=== PATIENT | female | born 1950 | race Caucasian/White ===

== ENCOUNTER 2017-01-03 09:02 | Emergency (ER) | payer MEDICARE, OTHER ==
[2017-01-03] VITALS (8 sets, daily range): BP systolic 116–159; BP diastolic 52–86; PULSE 80–98; RESP 17–24; O2SAT 91–96
[~2017-01-03] VITALS: Ht 167.6 cm; Wt 125.0 kg
[2017-01-03 09:11] LABS: BASOPHILS % (AUTO) 0.5 % (0-3); EOSINOPHILS % (AUTO) 0.7 % (0-5); MONOCYTES % (AUTO) 8.1 % (4-12); Mean Corpuscular Hemoglobin 23.8 pg (27.0-35.0); Mean Corpuscular Volume 78.2 fL (81-100); NEUTROPHILS % (AUTO) 82.1 % (40-74); Platelet Count 106 bil/L (150-400)
--- NOTE | 2017-01-03 09:17 | ED.REPORT ---
HPI-Chest Pain 40 and Over Date of Service January 03, 2017 ED Provider: Mumtaz Hopper DO 66 year old female with a history of chronic atrial fibrillation on anticoagulation therapy with warfarin, HTN, and diabetes presents to the ER via EMS accompanied by her complaining of chest pain onset at 03:30 this morning. Associated symptoms include mild headache, chills, nasal drainage, sore throat, and pain with swallowing and moving her torso. Patient denies cough. Symptoms were treated with Tylenol which relieved symptoms enough to allow her to sleep, though symptoms worsened in severity upon awakening again later in the morning. Nursing Notes Stated Complaint: CHEST PAIN Chief Complaint: Chest Pain Nursing Notes Reviewed: Yes Allergies: Coded Allergies: lisinopril (Verified Allergy, Intermediate, COUGH, INCREASE MUCOUS PRODUCTION, 08/16/15) phenobarbital (Verified Adverse Reaction, Intermediate, AGITATION, ) methocarbamol (Verified Adverse Reaction, Unknown, 08/16/15) General Time Seen by MD: 09:16 Chief Complaint Chest pain Hx Obtained From: Patient Arrived By: Ambulance Sudden in Onset?: No Onset Occurred: 5 - 8 hours ago Symptom Duration: Since onset Location: : Substernal Quality: Painful Severity: Current: Moderate Severity: Maximum: Moderate Associated with: Reports: Diaphoresis, Fever, Denies: Cough, productive Recent Healthcare: Recent doctor visit Similar Sx Previous: No Past Medical History Past Medical History Reports: Asthma, Diabetes mellitus, Hypertension Reports: Atrial fibrillation Past Surgical History Reports: Hysterectomy, Tonsillectomy Reports: Knee replacement, Tubal ligation Smoking History Never Smoker Social History Alcohol Use: "Social" Drug Use: Denies drug use Other Social History: Occupation no work or school Review of Systems Review of Systems Note: +Nasal Drainage Constitutional: Reports: Chills, Fever Respiratory: Denies: Non-productive cough Cardiovascular: Reports: Chest pain GI: Reports: Nausea, Denies: Diarrhea, Vomiting Musculoskeletal: Reports: Myalgia, Neck pain Skin: Reports Diaphoresis Neurologic: Reports: Headache Complete sys rev & neg: except as marked. Ears / Nose / Throat: Reports: Earache bilateral, Nasal congestion, Sore throat Physical Exam Initial Vital Signs Vital Signs (First) Date Time Temp Pulse Resp B/P Pulse Ox O2 Delivery O2 Flow Rate FiO2 01/03/17 09:05 37.2 80 17 116/52 96 Room Air Initial VS: Reviewed Head / Eyes: Atraumatic, Normocephalic Extremities: Vascular intact, Neuro intact, No swelling, No tenderness Skin: Warm, Dry, No cyanosis Neurologic: Alert, Oriented, Nonfocal General/Constitutional: Awake, Alert, Well developed, Well nourished Respiratory / Chest: Breath sounds NL, Breath sounds = bilat, No respiratory distress, No rales, No rhonchi, No wheezing Tender chest wall. Cardiovascular: Heart rate NL, Heart sounds NL, No murmurs, Peripheral circulation NL, Pulses = bilaterally, No gross BP differential Heart Rate / Rhythm: Positive: Irreg irregular rhythm Abdomen: Soft, Non-tender, McBurney's non-tender, No guarding, No rebound, BS normoactive, No distention, No hernia, No palpable mass Neck: Supple, Full range of motion, Non-tender, No midline vertebral tend No jaw claudication. ENT: Mucous membranes moist, Pharynx NL, Tympanic membs NL, Ext aud canal NL Interpretation & Diagnostics X-RAY NECK SOFT TISSUE ([id number]) IMPRESSION: 1. Patent airway demonstrated without prevertebral soft tissue thickening. Dictated by: Kota Sánchez M.D. on 01/03/2017 at 10:35 Approved by: Kota Sánchez M.D. on 01/03/2017 at 10:40 Lab Results Interpretation Result Diagram: 01/03/17 0908 01/03/17 0908 Test 01/03/17 09:08 White Blood Count 4.2th/mm3 (3.8-10.1) Red Blood Count 3.95mil/mm3 (3.90-5.20) Hemoglobin 9.4g/dL (12.0-15.6) Hematocrit 30.9% (35.0-46.0) Mean Corpuscular Volume 78.2fL (81-100) Mean Corpuscular Hemoglobin 23.8pg (27.0-35.0) Mean Corpuscular Hemoglobin Concent 30.4% (32.0-37.0) Red Cell Distribution Width 17.5% (12.3-15.4) Platelet Count 106bil/L (150-400) Neutrophils (%) (Auto) 82.1% (40-74) Lymphocytes (%) (Auto) 8.4% (14-46) Monocytes (%) (Auto) 8.1% (4-12) Eosinophils (%) (Auto) 0.7% (0-5) Basophils (%) (Auto) 0.5% (0-3) Erythrocyte Sedimentation Rate 30mm/hr (0-40) Prothrombin Time 20.1sec (8.1-12.5) Prothromb Time International Ratio 1.85ratio Sodium Level 139mEq/L (134-144) Potassium Level 4.2mEq/L (3.5-5.2) Chloride Level 101mEq/L (97-108) Carbon Dioxide Level 22mmol/L (18-29) Blood Urea Nitrogen 18mg/dL (8-27) Creatinine 1.18mg/dL (0.57-1.00) Estimat Glomerular Filtration Rate 66mL/min (>59) Glucose Level 240mg/dL (60-99) Calcium Level 8.7mg/dL (8.5-10.1) Magnesium Level 1.6mg/dL (1.6-2.6) Total Bilirubin 0.8mg/dL (0.0-1.2) Aspartate Amino Transf (AST/SGOT) 17U/L (0-50) Alanine Aminotransferase (ALT/SGPT) 8U/L (0-32) Alkaline Phosphatase 69U/L (25-165) Troponin T 0.010ug/L (0.0-0.011) Total Protein 6.9g/dL (6.4-8.4) Albumin 3.9g/dL (3.4-5.0) ECG Interpretation ECG Interpretation: Atrial fibrillation, rate 92 Time: 09:18 Interpreted by: ED physician Normal ECG Interpretation: No acute ischemic changes X-Ray Chest Interpretation Chest Xray Interpretation: IMPRESSION: Cardiomegaly without overt heart failure. Dictated by: Benito Pressley M.D. on 01/03/2017 at 8:28 Approved by: Benito Pressley M.D. on 01/03/2017 at 8:29 View: Portable, 1 view Interpretation / Wet Read by: Interpret - Radiologist CT Head Interpretation IMPRESSION: Negative head CT. No acute intracranial hemorrhage. Dictated by: Benito Pressley M.D. on 01/03/2017 at 12:11 Approved by: Benito Pressley M.D. on 01/03/2017 at 12:12 Re-Eval/Medical Decision Med Decision/Clinical Course Patient reports had neck and chest pain that is reproducible and sounds more like either of viral upper respiratory infection or allergies, headache is not severe, given her multiple comorbidities and rather concerning presentation more resource intensive workup was performed, head CT is unremarkable for any obvious intracranial hemorrhage, lateral neck x-rays are performed to rule out deep space neck infection. Her clinical exam is not consistent with strep throat. The chest is focally tender and reproducible with movement of the arms and torso, EKG shows chronic A. fib, troponin negative other labs are unremarkable. Sedimentation rate was performed to look for other autoimmune inflammatory processes and was also unremarkable. Patient has had moderate relief with the medications given in the ER and will be discharged. Return and follow-up precautions are given. Source of Hx: Old records Time of Eval: 10:10 Re-Evaluation/Progress Note: Patient reports that symptoms have improved, still having sore throat. Time of Eval: 10:39 Re-Evaluation/Progress Note: Patient reports that the medications are working and she is feeling better. She denies jaw claudication. Time of Eval: 13:21 Re-Evaluation/Progress Note: Discussed lab and radiology results and plan to discharge. Patient is amenable to the plan. Return precautions given. All other questions addressed. Counseled Regarding: Diagnosis, Lab results, Need for follow-up, When/why to return to ED Discharge & Departure Primary Impression: Non-cardiac chest pain Additional Impressions: Neck pain Mild headache Disposition: Home Discharge Condition All VS Reviewed: Yes Condition: Stable Additional Instructions: Your workup today is reassuring. Your labs, X-rays, and CT results do not indicate that there is any dangerous cause for your symptoms today. Take Tylenol and Tramadol as directed for pain. Start with 1/2 a Tramadol pill and progress to full dose if needed. Follow-up with your primary care doctor later this week. Return to the ER if you develop any new or concerning symptoms. Referrals: China Liu (PCP) (Family) Scribe Attestation Portions of this note were transcribed by Kaela Tran. I, Dr. Hopper, personally performed the history, physical exam and medical decision-making; I reviewed and confirmed the accuracy of the information in the transcribed note. Signed by: Brandy Warren, 01/03/2017 at 13:24 copies to: China Liu Timothy S DO January 03, 2017 09:17 KAELA TRAN January 03, 2017 09:22
--- NOTE | 2017-01-03 09:31 | DRSVH ---
PROCEDURE: X-RAY CHEST ONE VIEW, PORTABLE ([id number]) INDICATIONS: cp TECHNIQUE: One view of the chest was acquired. COMPARISON: None. FINDINGS: Surgical changes and devices: Clips within the right upper quadrant are suggestive of a prior cholecy stectomy. Lungs and pleura: There are low lung volumes. No lobar consolidation, large effusion, or pneumothora x is evident. Mediastinum: Mediastinal contours appear normal. Heart size is enlarged. Bones and chest wall: No suspicious bony lesions. The bone mineralization appears decreased. Degen erative changes of the spine are present. Overlying soft tissues appear unremarkable. IMPRESSION: Cardiomegaly without overt heart failure. Dictated by: Benito Pressley M.D. on 01/03/2017 at 8:28 Approved by: Benito Pressley M.D. on 01/03/2017 at 8:29
[2017-01-03 09:34] LABS: TROPONIN T 0.01 ug/L (0.0-0.011)
[2017-01-03] MEDS ORDERED: ProchlorPERazine 5 mg/mL 2 mL Inj IVPUSH ONE (09:40)
[2017-01-03 09:45] LABS: Magnesium 1.6 mg/dL (1.6-2.6)
[2017-01-03] MEDS ORDERED: Ketorolac 15 mg/mL Inj IVPUSH ONE (10:35)
--- NOTE | 2017-01-03 10:41 | DRSVH ---
PROCEDURE: X-RAY NECK SOFT TISSUE ([id number]) INDICATIONS: sore throat, neck feels swollen TECHNIQUE: 2 views of the neck were acquired. COMPARISON: None. FINDINGS: Airway: The airway appears patent. Soft tissues: Prevertebral soft tissues are normal in thickness. The epiglottis and aryepiglottic f olds appear normal. No soft tissue gas. Bones: No suspicious bony lesions. Visualized cervical spine is normally aligned. IMPRESSION: 1. Patent airway demonstrated without prevertebral soft tissue thickening. Dictated by: Kota Sánchez M.D. on 01/03/2017 at 10:35 Approved by: Kota Sánchez M.D. on 01/03/2017 at 10:40
[2017-01-03 10:49] LABS: INR 1.85 ratio
--- NOTE | 2017-01-03 13:14 | DRSVH ---
PROCEDURE: CT BRAIN WITHOUT CONTRAST ([id number]) INDICATIONS: headache, on coumadin TECHNIQUE: Noncontrast 4.5 mm thick angled axial sections acquired from the foramen magnum to the vertex, with c oronal reformats. COMPARISON: None. FINDINGS: Image quality: Diagnostic. CSF spaces: Basal cisterns are patent. No extra-axial fluid collections. Ventricles are normal in size and shape. Brain: No midline shift. No intracranial masses or hemorrhage. Pereyra-white matter interface is norm al. Skull and face: Calvarium and visualized facial bones are intact, without suspicious lesions. Sinuses: Visualized sinuses and mastoids are clear. IMPRESSION: Negative head CT. No acute intracranial hemorrhage. Dictated by: Benito Pressley M.D. on 01/03/2017 at 12:11 Approved by: Benito Pressley M.D. on 01/03/2017 at 12:12
[2017-01-03] MEDS ORDERED: TRAM50TA2 PO (13:29)
== END 2017-01-03 13:47 | disposition home or self-care (01) ==
LOC: SED 09:02
DX: R07.89 Other chest pain (principal); M54.2 Cervicalgia; R51 Headache; R68.83 Chills (without fever); J34.89 Other specified disorders of nose and nasal sinuses; J02.9 Acute pharyngitis, unspecified; I48.2 Chronic atrial fibrillation; I10 Essential (primary) hypertension; E11.9 Type 2 diabetes mellitus without complications; J45.909 Unspecified asthma, uncomplicated; Z79.01 Long term (current) use of anticoagulants; Z88.8 Allergy status to other drugs, medicaments and biological substances
CPT/HCPCS: 36415; 70360; 70450; 71010; 80053; 83735; 84484; 85025; 85610; 85651; 93005; 96374; 96375; 99285; J0780; J1200

== ENCOUNTER 2017-01-18 10:41 | Emergency (ER) | payer MEDICARE, OTHER ==
[~2017-01-18] VITALS: Ht 170.2 cm; Wt 125.0 kg
[~2017-01-18 10:41] MED LIST: TRAM50TA2 PO
[2017-01-18 10:44] VITALS: BP 143/81; PULSE 84; RESP 24; O2SAT 96
--- NOTE | 2017-01-18 10:51 | ED.REPORT ---
HPI-General Illness Date of Service January 18, 2017 ED Provider: Skyler Fregoso MD Patient is a 66 year old female with history if atrial fibrillation on anticoagulation therapy with warfarin, 2.5 mg daily, last INR 2.4 today, hypertension and diabetes presents to [facility] Emergency Department accompanied by her complaining of worsening shortness of breath and decreased urination for two weeks. She states she has been in ED about two weeks ago for acute chest pain work up which was negative. Since then she noticed shortness of breath on exertion that was getting worse. She used to be active in her garden and around the house, but now she is spending most of her time at home resting as any activity leads to shortness of breath. She is using Proair every 6 hours for the last 2 weeks as it seems to help. She also states she noticed that she is urinating less even though she seems to drink the same amount of fluids daily. She denies hematuria, dyuria. She denies chest pain, nausea, vomiting, diarrhea. She does state she has epigastric tenderness and fulness lately. Nursing Notes Stated Complaint: CANT BREATH/NOT URINATING Chief Complaint: Respiratory Complaints Nursing Notes Reviewed: Yes Allergies: Coded Allergies: lisinopril (Verified Allergy, Intermediate, COUGH, INCREASE MUCOUS PRODUCTION, 08/16/15) phenobarbital (Verified Adverse Reaction, Intermediate, AGITATION, ) methocarbamol (Verified Adverse Reaction, Unknown, 08/16/15) Scheduled Atenolol (Atenolol) 50 Mg Tablet 25 MG PO DAILY Duloxetine (Duloxetine) 30 Mg Capsule.dr 30 MG PO DAILY Furosemide (Lasix) 20 Mg Tablet 20 MG PO DAILY Glipizide (Glipizide) 10 Mg Tablet 10 MG PO DAILY Insulin Glargine (Lantus U100 Insulin Vial) 100 Unit/Ml Vial 43 UNITS [id number] HS Losartan Potassium (Losartan Potassium) 50 Mg Tablet 50 MG PO DAILY Warfarin Sodium (Warfarin Sodium) 2.5 Mg Tablet 2.5 MG PO DAILY Scheduled PRN Tramadol (Tramadol) 50 Mg Tablet 25-50 MG PO Q4H PRN PRN For Pain General Time Seen by MD: 10:49 Chief Complaint Breathing problem Hx Obtained From: Patient, Spouse Onset Occurred: More than a week ago... (2 weeks) Symptom Duration: Since onset Severity: Current: No pain currently Severity: Maximum: No pain Past Medical History Past Medical History Notes: Past Medical History Reports: Asthma, Congestive heart failure, Diabetes mellitus, Hypertension Reports: Atrial fibrillation Past Surgical History Reports: Cholecystectomy, Hysterectomy, Tonsillectomy Reports: Knee replacement, Tubal ligation Smoking History Never Smoker Social History Alcohol Use: "Social" Drug Use: Denies drug use Other Social History: , Local resident Occupation no work or school Ambulatory Status Independent Review of Systems Full Review of Systems Constitutional: Reports: Fatigue, Denies: Chills, Fever, Lethargy, Malaise, Recent wt loss, Weakness - generalized Respiratory: Denies: Hemoptysis, Pleuritic pain Cardiovascular: Reports: Dyspnea on exertion, Edema, Denies: Chest pain GI: Reports: Abdominal pain Female: Denies: Dysuria, Hematuria, Incontinence, Nocturia Skin: Denies Bruising, Denies Diaphoresis Allergy / Immune: Denies: Itching Neurologic: Denies: Bowel dysfunction, Dizziness, Focal weakness Psychiatric: Denies: Change mental status Physical Exam Vital Signs Vital Signs Date Time Temp Pulse Resp B/P Pulse Ox O2 Delivery O2 Flow Rate FiO2 01/18/17 14:47 36.8 76 16 116/66 94 Room Air 01/18/17 14:17 99 18 120/63 95 Room Air 01/18/17 10:44 37.4 84 24 143/81 96 Room Air Initial VS: Reviewed (RR 24) General/Constitutional: Well-developed, Well-nourished Head / Eyes: Atraumatic, Normocephalic, PERRL ENT: Mucous membranes moist, Conjunctiva normal, No scleral icterus Neck: Supple, Non-tender, Full range of motion Skin: Warm, Dry, No cyanosis Neurologic: Alert, Oriented, Nonfocal Psychiatric: Mood/affect normal, Behavior normal, Normal thought content General/Constitutional: Awake, Alert, No acute distress Head / Eyes: Atraumatic, Normocephalic, PERRL Neck: Atraumatic, Supple, Full range of motion, Non-tender, No JVD Diminished Breath Sounds: Positive: Decreased bilateral Rales / Rhonchi: Positive: Rales bilateral bases Cardiovascular: Heart rate NL Heart Rate / Rhythm: Positive: Irreg irregular rhythm Lower Ext Edema: Positive: Bilateral 1+ Abdomen: Atraumatic, Soft, No guarding, No rebound, BS normoactive Tenderness/Guarding/Rebound: Positive: Tender epigastric Upper Extremities Upper Extremity / MS: Inspection NL, No swelling, Vascular intact Skin: No rash, Warm, Dry, Intact Interpretation & Diagnostics Lab Results Interpretation Result Diagram: 01/18/17 1200 01/18/17 1200 Test 01/18/17 12:00 01/18/17 12:30 01/18/17 13:30 White Blood Count 3.5th/mm3 (3.8-10.1) Red Blood Count 3.64mil/mm3 (3.90-5.20) Hemoglobin 8.4g/dL (12.0-15.6) Hematocrit 28.0% (35.0-46.0) Mean Corpuscular Volume 76.9fL (81-100) Mean Corpuscular Hemoglobin 23.1pg (27.0-35.0) Mean Corpuscular Hemoglobin Concent 30.0% (32.0-37.0) Red Cell Distribution Width 17.2% (12.3-15.4) Platelet Count 136bil/L (150-400) Neutrophils (%) (Auto) 81.8% (40-74) Lymphocytes (%) (Auto) 8.8% (14-46) Monocytes (%) (Auto) 7.4% (4-12) Eosinophils (%) (Auto) 1.1% (0-5) Basophils (%) (Auto) 0.6% (0-3) Sodium Level 138mEq/L (134-144) Potassium Level 4.1mEq/L (3.5-5.2) Chloride Level 101mEq/L (97-108) Carbon Dioxide Level 24mmol/L (18-29) Blood Urea Nitrogen 17mg/dL (8-27) Creatinine 1.35mg/dL (0.57-1.00) Estimat Glomerular Filtration Rate 56mL/min (>59) Glucose Level 204mg/dL (60-99) Calcium Level 8.6mg/dL (8.5-10.1) Magnesium Level 1.9mg/dL (1.6-2.6) Total Bilirubin 0.9mg/dL (0.0-1.2) Aspartate Amino Transf (AST/SGOT) 12U/L (0-50) Alanine Aminotransferase (ALT/SGPT) 6U/L (0-32) Alkaline Phosphatase 73U/L (25-165) Troponin T 0.010ug/L (0.0-0.011) Pro-B-Type Natriuretic Peptide 2038pg/mL (0-301) Total Protein 6.0g/dL (6.4-8.4) Albumin 3.4g/dL (3.4-5.0) Hold Urine Received (Received) Hold Haney Top Tube Received (Received) ECG Interpretation ECG Interpretation: Atrial fibrillation, rate 79 Time: 12:15 Interpreted by: ED physician CBC Interpretation WBC low (3.5), Hgb low (8.4), Platelets low BMP / CMP Interpretation Creatinine elevated (1.35 (1.18 two days ago)) X-Ray Chest Interpretation Chest Xray Interpretation: Left lower and mid lobe opacity. Could be sales representative publications of fluid. Underlying consolidative air space opacity, could be sales representative publications of pneumonia. Interpretation / Wet Read by: Interpret - Radiologist Re-Eval/Medical Decision Med Decision/Clinical Course 66 year old female with A-fib, on warfarin, presents with shortness of breath x 2 weeks. Laboratory work up significant for BNP of 2038 and creatinine of 1.35. Chest x-ray reveals cardiomegaly with left lower lobe pleural effusion and opacity. UA with trace blood otherwise unremarkable. Most likely in CHF. Will give IV Lasix, 40 mg. She will be discharged home with Rx for Lasix, 20 mg PO daily and close follow up with her PCP within 5-7 days. 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 You have congestive heart failure. Please take Lasix, 20 mg by mouth daily to help your body to get rid of extra fluid in your body. Make sure you call your PCP tomorrow and make a follow up appointment within 5-7 days, as you need to be reevaluated again and have repeat blood work done. Please come back to Emergency Department if you develop sudden onset of chest pain, shortness of breath, nausea, vomiting, weakness. Thank you for letting us partake in your care today. Referrals: China Liu (PCP) (Family) EDSupervising Provider for APC: Skyler Fregoso MD Attending Statement Attending attestation: I saw this patient in conjunction with the above named resident. I was present for all chen portions of the history taking and physical examination. I agree with the workup, evaluation, treatment and disposition. Skyler Edmonds MD, MD January 18, 2017 10:51 Ngozi Nieves DO January 18, 2017 12:50
[2017-01-18] MEDS ORDERED: LOSA50TA37 PO (11:23)
[2017-01-18] MEDS ORDERED: DULO30CA50 PO (11:23)
[2017-01-18] MEDS ORDERED: ATEN50TA PO (11:23)
[2017-01-18] MEDS ORDERED: GLIP10TA10 PO (11:23)
[2017-01-18] MEDS ORDERED: WARF2.5T82 PO (11:23)
[2017-01-18] MEDS ORDERED: INSU100V7 SUBCUTA079 (11:23)
[2017-01-18 12:11] LABS: BASOPHILS % (AUTO) 0.6 % (0-3); EOSINOPHILS % (AUTO) 1.1 % (0-5); MONOCYTES % (AUTO) 7.4 % (4-12); Mean Corpuscular Hemoglobin 23.1 pg (27.0-35.0); Mean Corpuscular Volume 76.9 fL (81-100); NEUTROPHILS % (AUTO) 81.8 % (40-74); Platelet Count 136 bil/L (150-400)
--- NOTE | 2017-01-18 12:22 | DRSVH ---
PROCEDURE: X-RAY CHEST ONE VIEW, PORTABLE ([id number]) INDICATIONS: sob TECHNIQUE: One view of the chest was acquired. COMPARISON: [facility], CR, XR CHEST 1VW (PORTABLE), 01/03/2017, 9:05. FINDINGS: Surgical changes and devices: Right shoulder tendon anchor. Lungs and pleura: No pleural effusions or pneumothorax. There is left lower and midlobe opacificati on. Mediastinum: Mediastinal contours appear normal. Heart size is normal. Bones and chest wall: No suspicious bony lesions. Overlying soft tissues appear unremarkable. IMPRESSION: Left lower and mid lobe opacity. This could be assistance representative of fluid. Underlying con solidative air space opacity including pneumonia cannot be excluded. Recommend interval followup to document resolution and exclude presence of underlying mass lesion. Dictated by: Connie Millan M.D. on 01/18/2017 at 12:18 Approved by: Connie Millan M.D. on 01/18/2017 at 12:20
[2017-01-18 12:44] LABS: TROPONIN T 0.01 ug/L (0.0-0.011)
[2017-01-18 12:55] LABS: Magnesium 1.9 mg/dL (1.6-2.6)
[2017-01-18] MEDS ORDERED: Furosemide 10 mg/mL 4 mL Inj IVPUSH ONE (13:25)
[2017-01-18 14:17] VITALS: BP 120/63; PULSE 99; RESP 18; O2SAT 95
[2017-01-18] MEDS ORDERED: FURO-129 PO (14:41)
[2017-01-18 14:47] VITALS: BP 116/66; PULSE 76; RESP 16; O2SAT 94
== END 2017-01-18 14:49 | disposition home or self-care (01) ==
LOC: SED 10:41
DX: I50.9 Heart failure, unspecified (principal); E11.8 Type 2 diabetes mellitus with unspecified complications; I48.91 Unspecified atrial fibrillation; I10 Essential (primary) hypertension; J45.909 Unspecified asthma, uncomplicated; Z79.01 Long term (current) use of anticoagulants; Z79.4 Long term (current) use of insulin; Z88.8 Allergy status to other drugs, medicaments and biological substances
CPT/HCPCS: 36415; 71010; 80053; 83735; 83880; 84484; 85025; 93005; 96374; 99285; J1940

== ENCOUNTER 2017-03-09 20:59 | Emergency (ER) | payer MEDICARE, OTHER ==
[~2017-03-09] VITALS: Ht 167.6 cm; Wt 115.5 kg
[~2017-03-09 20:59] MED LIST changes: +ATEN50TA PO; +DULO30CA50 PO; +FURO-129 PO; +GLIP10TA10 PO; +INSU100V7 SUBCUTA079; +LOSA50TA37 PO; +WARF2.5T82 PO
[2017-03-09 21:05] VITALS: BP 147/83; PULSE 87; RESP 18; O2SAT 99
--- NOTE | 2017-03-09 21:18 | ED.REPORT ---
HPI-Abd Pain F 2 and Over Date of Service Mar 09, 2017 ED Provider: William Richardson Pt is a 66 year old female with a history of DM, HTN, CHF, cholecystectomy, fatty liver disease, and hysterectomy who presents to the ED complaining of RLQ abdominal pain onset today after eating lunch. She c/o associated nausea, vomiting, and "feeling bloated." No melena hematochezia or diarrhea. She denies any other symptoms. Pt denies a history of appendectomy. The pt reports that her at the same food as her, but he is not currently experiencing any symptoms. Nursing Notes Stated Complaint: VOMITING, RIGHT SIDE PAIN Chief Complaint: Female Abdominal Pain Nursing Notes Reviewed: Yes Allergies: Coded Allergies: lisinopril (Verified Allergy, Intermediate, COUGH, INCREASE MUCOUS PRODUCTION, 03/09/17) phenobarbital (Verified Adverse Reaction, Intermediate, AGITATION, 03/09/17 ) ciprofloxacin (Verified Adverse Reaction, Mild, Vomiting, 03/09/17) methocarbamol (Verified Adverse Reaction, Unknown, 03/09/17) Uncoded Allergies: QUENOLONES (Adverse Reaction, Mild, Vomiting, 03/09/17) Scheduled Atenolol (Atenolol) 50 Mg Tablet 25 MG PO DAILY Duloxetine (Duloxetine) 30 Mg Capsule.dr 30 MG PO DAILY Esomeprazole Magnesium (Nexium) 20 Mg Capsule.dr 20 MG PO DAILY Furosemide (Lasix) 20 Mg Tablet 20 MG PO DAILY Glipizide (Glipizide) 10 Mg Tablet 10 MG PO DAILY Insulin Glargine (Lantus U100 Insulin Vial) 100 Unit/Ml Vial 43 UNITS [id number] HS Losartan Potassium (Losartan Potassium) 50 Mg Tablet 50 MG PO DAILY Warfarin Sodium (Warfarin Sodium) 2.5 Mg Tablet 2.5 MG PO DAILY Scheduled PRN Ondansetron ODT (Ondansetron ODT) 8 Mg Tab.rapdis 8 MG PO QID PRN PRN For Nausea Tramadol (Tramadol) 50 Mg Tablet 25-50 MG PO Q4H PRN PRN For Pain General Time Seen by MD: 21:17 Chief Complaint Abdominal pain Hx Obtained from: Patient Arrived by: Walk-in Sudden in Onset?: No Onset Occurred: 5 - 8 hours ago Symptom Duration: Since onset Location: : RLQ Radiation: : Does not radiate Severity: Current: Moderate Severity: Maximum: Moderate Recent Healthcare: Recent doctor visit Similar Sx Previous: No Past Medical History Past Medical History Notes: Past Medical History Fatty liver disease Splenomegaly Hypertension CHF Reports: Diabetes mellitus Past Surgical History Cholecystectomy Hysterectomy Denies: Appendectomy Family History Denies Smoking History Never Smoker Social History Ambulatory Status Ambulatory Status: Independent Review of Systems Constitutional: Denies: Fever Respiratory: Denies: Non-productive cough, Shortness of breath GI: Reports: Abdominal pain, Nausea, Vomiting Complete sys rev & neg: except as marked. Physical Exam Initial Vital Signs Vital Signs (First) Date Time Temp Pulse Resp B/P Pulse Ox O2 Delivery O2 Flow Rate FiO2 03/09/17 21:05 36.4 87 18 147/83 99 Room Air Initial VS: Reviewed Head / Eyes: Atraumatic, Normocephalic Neck: Supple, Full range of motion Extremities: Vascular intact, Neuro intact Skin: Warm, Dry, No cyanosis Neurologic: Alert, Oriented, Nonfocal Psychiatric: Mood/affect normal, Behavior normal General / Constitutional: Awake, Alert, Cooperative Appearance / Presentation: Positive: Obese Dry appearance. Respiratory / Chest: Atraumatic, Breath sounds NL, Breath sounds = bilat Cardiovascular: Heart rate NL, Regular rhythm, No murmurs Irregularly irregular. Abdomen: Atraumatic, Soft Tenderness/Guarding/Rebound: Positive: Tender RLQ... (Moderate) Back: Atraumatic, Inspection NL, Full range of motion Interpretation & Diagnostics ECG Interpretation by ED Physician at 21:18: Atrial fibrillation with a rate of 104. Ventricular premature complex. ST wave changes bilaterally. Lab Results Interpretation Result Diagram: 03/09/17212903/09/172129 Test 03/09/17 21:30 03/10/17 00:12 White Blood Count 3.0th/mm3 (3.8-10.1) Red Blood Count 3.90mil/mm3 (3.90-5.20) Hemoglobin 9.3g/dL (12.0-15.6) Hematocrit 30.1% (35.0-46.0) Mean Corpuscular Volume 77.2fL (81-100) Mean Corpuscular Hemoglobin 23.8pg (27.0-35.0) Mean Corpuscular Hemoglobin Concent 30.9% (32.0-37.0) Red Cell Distribution Width 19.7% (12.3-15.4) Platelet Count 89bil/L (150-400) Neutrophils (%) (Auto) 83.3% (40-74) Lymphocytes (%) (Auto) 8.9% (14-46) Monocytes (%) (Auto) 5.9% (4-12) Eosinophils (%) (Auto) 1.3% (0-5) Basophils (%) (Auto) 0.3% (0-3) Prothrombin Time 20.4sec (8.1-12.5) Prothromb Time International Ratio 1.88ratio Sodium Level 136mEq/L (134-144) Potassium Level 3.5mEq/L (3.5-5.2) Chloride Level 98mEq/L (97-108) Carbon Dioxide Level 24mmol/L (18-29) Blood Urea Nitrogen 21mg/dL (8-27) Creatinine 1.37mg/dL (0.57-1.00) Estimat Glomerular Filtration Rate 55mL/min (>59) Glucose Level 245mg/dL (60-99) Calcium Level 9.0mg/dL (8.5-10.1) Magnesium Level 1.5mg/dL (1.6-2.6) Total Bilirubin 0.7mg/dL (0.0-1.2) Aspartate Amino Transf (AST/SGOT) 14U/L (0-50) Alanine Aminotransferase (ALT/SGPT) 8U/L (0-32) Alkaline Phosphatase 78U/L (25-165) Total Protein 7.1g/dL (6.4-8.4) Albumin 3.9g/dL (3.4-5.0) Lipase 15U/L (13-60) Hold Haney Top Tube Received (Received) Urine Color Yellow (YELLOW) Urine Appearance Clear (CLEAR,HAZY) Urine pH 5.5 (5.0-8.0) Urine Specific Viola 1.020 (1.003-1.035) Urine Protein Tracemg/dL (NEG,TRACE) Urine Glucose (UA) Negativemg/dL (NEGATIVE) Urine Ketones Negativemg/dL (NEGATIVE) Urine Occult Blood Negative (NEGATIVE) Urine Nitrite Negative (NEGATIVE) Urine Bilirubin Negative (NEGATIVE) Urine Urobilinogen Normalmg/dL (NORMAL) Urine Leukocyte Esterase Negative (NEGATIVE) Urine RBC 0-2/hpf (0-2) Urine WBC 0-5/hpf (0-5) Urine Epithelial Cells Occasional/hpf (NONE-MOD) Urine Crystals None seen (NONE SEEN) Urine Bacteria None/hpf (NONE-FEW) Urine Hyaline Casts Occasional/lpf (NONE) Urine Granular Casts None seen (NONE SEEN) Urine Waxy Casts None seen (NONE SEEN) Urine Red Blood Cell Casts None seen (NONE SEEN) Urine White Blood Cell Casts None seen (NONE SEEN) Urine Mucus Present (None Seen) Urine Trichomonas None seen (NONE SEEN) Urine Yeast None (NONE SEEN) Urinalysis Comment None Urine Culture Reflexed Not indicated CT Abd / Pelvis Interpretation CONCLUSION: Gastric antral wall thickening, nonspecific, may reflect artifact from a gastritis or peptic ulcerative disease. Small bowel fluid, nonspecific, possible gastroenteritis or ileus. Severe splenomegaly and varices, suggest portal hypertension. Study type: Abdominal CT IV contrast Interpretation / Wet Read by: Interpret - Radiologist Re-Eval/Medical Decision Med Decision/Clinical Course 66-year-old female with significant nonalcoholic steatosis and hepatitis, splenomegaly, varices, presents with nausea vomiting and some abdominal pain somewhat more prominent right lower quadrant. CT scan was obtained and does not show any significant pathology beyond gastroenteritis. Her exam was mildly tender but not peritoneal. She has been stable throughout her period of observation here. Able to take by mouth fluids at this point and nausea is under control. Home for follow-up with PCP. Return if worse. Source of Hx: Old records Re-Evaluation/Progress : Time of Eval: 00:19 Patient Status: Condition improved Re-Evaluation/Progress Note: Pt rechecked. She reports feeling better after hydration. Informed pt of plan for discharge. Pt understands and agrees with plan for discharge. F/U instructions and RTER warnings given. All questions addressed. Counseled Regarding: Diagnosis, Lab results, Need for follow-up, When/why to return to ED Discharge & Departure Impression: Primary Impression: Gastroenteritis Additional Impressions: Steatohepatitis, non-alcoholic Splenic pancytopenia syndrome Disposition: Home Discharge Condition All VS Reviewed: Yes Condition: Stable Patient Instructions: Acute Abdominal Pain (ED), Gastroenteritis (ED) Additional Instructions: Her CAT scan shows evidence of intestinal irritation and probably a viral infection. There is some thickening in the stomach and you should be on acid prevention medicine chronically. Begin Nexium daily. Follow-up with your doctor in the office. Zofran up four times daily if needed for nausea. Drink small sips of fluid frequently, favoring electrolyte replacement drinks such as Pedialyte or Gatorade or Powerade. Return if any immediate issue such as bleeding or inability to keep down fluids. Referrals: China Liu (PCP) (Family) Brandy Attestation Portions of this note were transcribed by Jaqueline Butts. I, Dr. Richardson personally performed the history, physical exam and medical decision-making; I reviewed and confirmed the accuracy of the information in the transcribed note. Signed by: Brandy Amaral, 03/09/17 and 22:30. China Liu Christopher W MD Mar 09, 2017 21:18 Jaqueline Cosme Mar 09, 2017 21:25
[2017-03-09] MEDS ORDERED: 0.9% Sodium Chloride 1,000 ML IV ONE (21:23)
[2017-03-09] MEDS ORDERED: Ondansetron 2 mg/mL 2 mL Inj IVPUSH ONE (21:25)
[2017-03-09 21:39] LABS: BASOPHILS % (AUTO) 0.3 % (0-3); EOSINOPHILS % (AUTO) 1.3 % (0-5); MONOCYTES % (AUTO) 5.9 % (4-12); Mean Corpuscular Hemoglobin 23.8 pg (27.0-35.0); Mean Corpuscular Volume 77.2 fL (81-100); NEUTROPHILS % (AUTO) 83.3 % (40-74); Platelet Count 89 bil/L (150-400)
[2017-03-09] MEDS: fentaNYL-PF 50 mCg/mL 2 mL Inj IVPUSH PRN ×3 (21:50→22:46)
[2017-03-09 21:57] LABS: INR 1.88 ratio
[2017-03-09 22:02] LABS: Magnesium 1.5 mg/dL (1.6-2.6)
[2017-03-09 23:55] VITALS: BP 140/80; PULSE 80; RESP 19; O2SAT 98
[2017-03-10] MEDS ORDERED: _Ondansetron ODT 4 mg Tablet PO PRN (00:20)
[2017-03-10] MEDS ORDERED: ONDA8TAB10 PO (00:25)
[2017-03-10] MEDS ORDERED: ESOM20CA28 PO ×2 (00:25→00:38)
[2017-03-10 00:26] LABS: APPEARANCE,URINE CLEAR (CLEAR,HAZY); COLOR,URINE YELLOW (YELLOW); OCCULT BLOOD,URINE NEGATIVE (NEGATIVE); PH,URINE 5.5 (5.0-8.0); UROBILINOGEN,URINE NORMAL (NORMAL)
[2017-03-10 00:40] VITALS: BP 138/78; PULSE 82; RESP 16; O2SAT 99
--- NOTE | 2017-03-10 08:07 | DRSVH ---
PROCEDURE: CT ABDOMEN AND PELVIS WITH CONTRAST ([id number]) INDICATIONS: rlq pain TECHNIQUE: After the administration of intravenous contrast, 5 mm thick sections acquired from the diaphragm to the symphysis. 5 mm coronal and sagittal reformats were acquired. For radiation dose reduction, the following was used: automated exposure control, adjustment of mA and/or kV according to patient blanca chinchilla. COMPARISON: [facility], CT, CT BRAIN WO CON, 01/03/2017, 13:06. FINDINGS: Image quality: Excellent. ABDOMEN: Lung bases: There is a 5 mm right lower lobe pulmonary nodule (series 3 image 8). Otherwise the lungs bases are clear. Heart size is mildly enlarged. Solid organs: Cholecystectomy. Minimally nodular contour to the anterior left lobe of the liver. Norm al pancreas. Severe splenomegaly with tiny subcentimeter hypodensities. Marked upper abdominal varice s. Normal adrenal glands. Benign left renal cysts. Severe enlargement of the left renal vein. Normal right kidney.. Peritoneum and bowel: Diverticulosis with no evidence of acute diverticulitis. The appendix is not id entified. There are no secondary signs of acute appendicitis. Fluid-filled loops of small bowel. The small bowel is normal caliber. The stomach is decompressed but otherwise radiographically normal. Nodes and vessels: No retroperitoneal or mesenteric adenopathy by size criteria. Aorta and inferior vena cava are normal in size. Miscellaneous: No ventral hernias. PELVIS: Genitourinary: Bladder wall thickness is normal. Miscellaneous: No inguinal hernias or adenopathy. Bones: No suspicious bony lesions. No vertebral body compression fractures. IMPRESSION: 1. Severe splenomegaly with upper abdominal varices and splenorenal shunt. The portal venous vascular ity is patent. Possible minimal hepatic nodularity may represent cirrhosis. The degree of splenomegal y is much greater than expected given the degree of radiologic abnormality in the liver. 2. There are no discrepancies with the preliminary report. Dictated by: Alok Mccarty M.D. on 03/10/2017 at 7:58 Approved by: Alok Mccarty M.D. on 03/10/2017 at 8:04
== END 2017-03-10 00:41 | disposition home or self-care (01) ==
LOC: SED 20:59
DX: K52.9 Noninfective gastroenteritis and colitis, unspecified (principal); K75.81 Nonalcoholic steatohepatitis (NASH); D61.818 Other pancytopenia; I11.0 Hypertensive heart disease with heart failure; E11.59 Type 2 diabetes mellitus with other circulatory complications; I50.9 Heart failure, unspecified; Z90.49 Acquired absence of other specified parts of digestive tract; Z79.4 Long term (current) use of insulin; Z79.01 Long term (current) use of anticoagulants; Z88.1 Allergy status to other antibiotic agents; Z88.8 Allergy status to other drugs, medicaments and biological substances
CPT/HCPCS: 36415; 74177; 80053; 81000; 83690; 83735; 85025; 85610; 93005; 96374; 96375; 96376; 99285; J2405; J3010; J7030; Q9967